=== PATIENT | female | born 2000 | race Caucasian/White ===

== ENCOUNTER 2021-09-14 23:27 | Emergency (ER) | payer MEDICAID ==
[~2021-09-14] VITALS: Ht 30.5 cm; Wt 0.5 kg
[2021-09-14] MEDS ORDERED: MORPHINE SULFATE 4 MG/ML CPJ (NOT FOR IM USE) IV ONE (23:45)
[2021-09-14] MEDS ORDERED: ONDANSETRON HCL 4MG/2ML INJ IV ONE (23:45)
[2021-09-14] MEDS ORDERED: LIDOCAINE HCL 1% 30ML VIAL (10MG/ML) INFIL NR (23:45)
[2021-09-14] MEDS ORDERED: TETANUS, DIPHTHERIA, PERTUSSIS VAC/PF 0.5ML (>10YR OLD) IM ONE (23:45)
[2021-09-14] MEDS ORDERED: LIDOCAINE HCL/PF 1% 10 MG/ML 5ML VIAL INFIL ONE (23:45)
[2021-09-15 00:13] VITALS: BP 128/57
[2021-09-15] MEDS ORDERED: DIPHENHYDRAMINE 25MG CAPSULE PO ONE (00:45)
[2021-09-15] MEDS ORDERED: T3 PO (02:14)
[2021-09-15] MEDS ORDERED: CEPH500C2 MT (02:14)
[2021-09-15] MEDS ORDERED: CEPHALEXIN 250MG CAPSULE PO ONE (02:15)
[2021-09-15] MEDS ORDERED: BO1 TP (02:22)
== END 2021-09-15 02:35 | disposition home or self-care (01) ==
LOC: ER 23:27
DX: S61.412A Laceration without foreign body of left hand, initial encounter (principal); S71.012A Laceration without foreign body, left hip, initial encounter; Y04.0XXA Assault by unarmed brawl or fight, initial encounter; Y93.89 Activity, other specified; Y92.89 Other specified places as the place of occurrence of the external cause; Y99.8 Other external cause status
CPT/HCPCS: 12006; 90471; 90715; 96374; 96375; 99284; J2270; J2405; J3490; Z7610; Q0163